=== PATIENT | male | born 1980 | race Two or more races ===

== ENCOUNTER → 2024-08-01 | Outpatient (CLI) | payer OTHER, SELFPAY ==
[2024-08-01 11:04] LABS: Collection Type, Urine Clean Catch; Squamous Epithelial Cell,Urine 0 /hpf (0-5)
[2024-08-01 11:26] LABS: Basophils % (Auto) 1 % (0-2.5); Eosinophils # (Auto) 0.1 Thou/mm3 (0.0-0.5); Eosinophils % (Auto) 2 % (0-10); Hematocrit 45.9 % (41.0-53.0); Hemoglobin 16.2 g/dL (13.5-16.0); Immature Granulocytes % (Auto) 0 % (0-0); Immature Granulocytes Auto 0.01 Thou/mm3 (0.00-0.00); Lymphocytes # (Auto) 1.7 Thou/mm3 (1.0-4.8); Lymphocytes % (Auto) 26 % (10-50); Mean Corpuscular HGB Conc 35.3 g/dl (31.0-37.0); Mean Corpuscular Hemoglobin 31.5 pg (25.0-35.0); Mean Corpuscular Volume 89 fL (80-100); Monocytes # (Auto) 0.5 Thou/mm3 (0.0-0.8); Monocytes % (Auto) 7 % (0-12); Neutrophils # (Auto) 4.2 Thou/mm3 (1.8-7.7); Neutrophils % (Auto) 65 % (37-80); Nucleated Red Blood Cell % 0 /100 WBC (0); Platelet Count 223 Thou/mm3 (140-440); RDW Standard Deviation 38.5 fL (35.1-43.9); Red Blood Count 5.15 Miln/mm3 (4.50-5.90); White Blood Count 6.5 Thou/mm3 (3.8-10.6)
[2024-08-01 11:44] LABS: Alanine Aminotransferase 34 U/L (10-49); Albumin, Serum 4.7 gm/dL (3.5-5.0); Alkaline Phosphatase 74 U/L (46-116); Anion Gap 10 (7-16); Aspartate Amino Transferase 23 U/L (0-34); BUN/Creatinine Ratio 12 Ratio (12-20); Bilirubin,Total 0.8 mg/dL (0.3-1.2); Blood Urea Nitrogen 13 mg/dL (9-23); Calcium 9.1 mg/dL (8.3-10.6); Calcium (Corrected) 9.1 mg/dL (8.5-10.1); Carbon Dioxide 28.1 mMol/L (20.0-31.0); Cardiac Risk Estimate 4.8 RATIO (4.0-6.7); Chloride 104 mMol/L (98-107); Cholesterol 224 mg/dL (132-200); Creatinine (Component) 1.1 mg/dL (0.6-1.3); Globulin 2.4 gm/dL (2.3-3.5); Glucose 93 mg/dL (74-106); HDL Cholesterol 47 mg/dL (40-60); LDL Cholesterol,Calculated 148 mg/dL (0-130); Osmolality,Calculated 283 (275-295); Potassium 3.8 mMol/L (3.4-5.1); Sodium 142 mMol/L (136-145); Total Protein 7.1 gm/dL (5.7-8.2); Triglycerides 144 mg/dL (30-150); eGFR > 60 See Note
[2024-08-01 12:32] LABS: Bilirubin,Urine Negative (Negative); Blood,Urine Negative (Negative); Clarity,Urine Clear (Clear/Hazy); Color,Urine Lt-Yellow (Lt Yel-Yel); Glucose, Urine Negative (Negative); Ketones,Urine Negative (Negative); Leukocyte Esterase,Urine Negative (Negative); Nitrite,Urine Negative (Negative); PH,Urine 6.5 (5.0-7.0); Protein,Urine Negative (Neg - Trace); RBC,Urine 2 /hpf (0-3); Urobilinogen,Urine Negative mg/dL (0.0-1.0); WBC,Urine < 1 /hpf (0-5)
== END | disposition home or self-care (01) ==
LOC: COPL 10:31
PROVIDERS: PCP Family Medicine; Referring Provider Family Medicine; Visit Provider Family Medicine
DX: Z00.00 Encounter for general adult medical examination without abnormal findings (principal)
CPT/HCPCS: 36415; 80053; 80061; 81001; 85025

== ENCOUNTER → 2024-08-04 | Outpatient (CLI) | payer OTHER, SELFPAY ==
--- NOTE | 2024-08-04 15:37 | EKG_ITS ---
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
== END | disposition home or self-care (01) ==
LOC: SEKG 15:24
PROVIDERS: PCP Family Medicine; Referring Provider Family Medicine; Visit Provider Family Medicine
DX: R00.0 Tachycardia, unspecified (principal); R03.0 Elevated blood-pressure reading, without diagnosis of hypertension; E78.2 Mixed hyperlipidemia
CPT/HCPCS: 93005

== ENCOUNTER → 2024-09-05 | Outpatient (CLI) | payer OTHER, SELFPAY ==
[2024-09-05 08:43] LABS: Vitamin B12 533 pg/mL (211-911); Vitamin D 25 Hydroxy Total 30.3 ng/mL (7.3-40.2)
[2024-09-05 08:59] LABS: Syphilis Nonreactive (Nonreactive)
[2024-09-12 06:49] LABS: Antithrombin III, Activity 118 % normal (80-135); Antithrombin III, Antigen 97 % normal (80-120); PTT-LA Screen 32 seconds (< OR = 40); Protein C Activity* 185 % normal (70-180); Protein C Antigen, Total* 126 % normal (70-140); Protein S Activity* 98 % normal (70-150); Protein S Antigen, Total* 115 % normal (70-140); dRVVT Screen 35 seconds (< OR = 45)
[2024-09-12 06:52] LABS: Factor V Leiden Mutation NEGATIVE; Homocysteine* 11.9 umol/L (< OR = 13.5)
== END | disposition home or self-care (01) ==
LOC: COPL 07:26
PROVIDERS: PCP Family Medicine; Referring Provider Psychiatry & Neurology Neurology; Visit Provider Psychiatry & Neurology Neurology
DX: I63.9 Cerebral infarction, unspecified (principal); D51.9 Vitamin B12 deficiency anemia, unspecified; E55.9 Vitamin D deficiency, unspecified; E78.5 Hyperlipidemia, unspecified
CPT/HCPCS: 36415; 81241; 82306; 82607; 83090; 85300; 85301; 85302; 85303; 85305; 85306; 85613; 85730; 86780

== ENCOUNTER 2024-09-09 12:07 | Emergency (ER) | payer OTHER, SELFPAY ==
[2024-09-09 12:10] VITALS: BP 161/98; PULSE 75; RESP 16; TEMP 36.2; O2SAT 98; BMI 29.8
--- NOTE | 2024-09-09 12:10 | PC.NURSE ---
EMPLOYEE WHO HAD SUDDEN ONSET SEEING SPOT AND BEING DIAPHORETIC WHILE AT WORK. HX RECENT CVA 1 MONTH AGO. WAS A MEDICAL RESPONSE UNIT ACTIVATION
--- NOTE | 2024-09-09 12:21 | PD.EDWEAK ---
ED Weakness RME/HPI General Chief complaint: Neuro Symptoms/Deficit Stated complaint: SEEING SPOTS, DIAPHORETIC TODAY AT WORK Time Seen by Provider: 09/09/24 12:44 Arrival date/time: 09/09/24 12:07 Limitations: no limitations RME / HPI RME / HPI Narrative: DR. KAMINI MCGRATH ED EVALUATION: 43-year-old male with past medical history of vertigo s/p recent stroke, intermittent tachycardia, and chronic right eye contractility issues presents to the Emergency Department with complaints of generalized weakness, diaphoresis, feeling hot, seeing spots, and palpitations. 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 Patient took propranolol this morning prior tachycardia, in the 120's this morning. Denies chest pain, dyspnea, fevers, chills, or recent sick contacts. Here, blood sugar 102, blood pressure was 155/98. No recent travel. He has a chronic asymmetric smile and right facial droop which is baseline following his prior stroke. Related Data Allergies Allergy/AdvReac Type Severity Reaction Status Date / Time No Known Allergies Allergy Verified 09/09/24 12:31 Review of Systems Review of Systems Systems Reviewed: All systems reviewed, normal except as documented Past Medical History Social History SMOKING STATUS: Never smoker SUBSTANCE USE: does not use ALCOHOL: Never Past Medical History Comments PMH COMMENT: vertigo s/p recent stroke, intermittent tachycardia, and chronic right eye contractility issues ED Exam General Limitations: Present no limitations General appearance: Present alert and in no apparent distress Head Head exam: Present atraumatic, normocephalic and normal inspection Eye Eye exam: Present normal appearance, PERRL and EOMI ENT ENT exam: Present normal exam, normal oropharynx and mucous membranes moist Neck Neck exam: Present normal inspection, full ROM and trachea midline Chest Chest inspection: Present normal inspection and symmetric chest wall rise Respiratory Respiratory exam: Present normal lung sounds bilaterally Cardiovascular Cardiovascular exam: Present regular rate, normal rhythm and normal heart sounds Abdominal Exam Abdominal exam: Present soft and normal bowel sounds Extremities Exam Extremities exam: Present normal inspection and full ROM Back Exam Back exam: Present normal inspection and full ROM Neurological Exam Neurological exam: Present alert, oriented X3 and other (has a chronic asymmetric smile and right facial droop which is baseline following his prior stroke) Psychiatric Psychiatric exam: Present normal affect and normal mood Skin Skin exam: Present warm, dry, intact and normal color Course Quality Measures none Orders Category Date Time Status Bedside COVID-19 Antigen Test NOW Care 09/09/24 12:42 Active Bedside Influenza A&B Antigen Test NOW Care 09/09/24 12:43 Completed EKG (ED ONLY) *Do not use* NOW Care 09/09/24 12:[address] head/brain wo con Stat Exams 09/09/24 12:46 Completed CXR [XR chest 1V] Stat Exams 09/09/24 12:44 Completed EKG (ED Only) Stat Exams 09/09/24 12:27 Draft CBC Stat Lab 09/09/24 12:25 Completed CK [Creatine Kinase] Stat Lab 09/09/24 12:25 Completed CMP [Comprehensive Metabolic Panel] Stat Lab 09/09/24 12:25 Completed Troponin I Stat Lab 09/09/24 12:25 Completed UA, C/S IF [Urinalysis, C/S if Indicated] Stat Lab 09/09/24 14:00 Completed VBG [Venous Blood Gas] Stat Lab 09/09/24 12:25 Completed Ketorolac Inj [Toradol Inj] Med 09/09/24 15:35 Discontinued 15 mg IVP X1 ONE Metoclopramide Inj [Reglan Inj] Med 09/09/24 12:51 Discontinued 5 mg IVP NOW ONE Ringers Lactated 1000 ml [Lactated Ringers] 1,000 ml Med 09/09/24 12:42 Discontinued IV 999 mls/hr Reevaluation(s) Reevaluation #1: Symptoms have resolved and patient feels better. We also discussed to get an ultrasound of the eye, patient declined at this time. Time: 15:34 Vital Signs Vital signs: Vital Signs Temperature 97.1 F 09/09/24 12:10 Pulse Rate 75 09/09/24 12:10 Respiratory Rate 16 09/09/24 12:10 Blood Pressure 161/98 H 09/09/24 12:10 Pulse Oximetry (%) 98 09/09/24 12:10 Oxygen Delivery Method Room Air 09/09/24 12:10 Weakness MDM Narrative MDM Narrative:: I, Jasmine Rahman, am scribing for and in the presence of Dr. Goodman. Patient is a 43-year-old male with medical history notable for multiple strokes, residual left-sided facial droop as well as tongue deviation presenting emergency department concerns for feeling lightheaded, diaphoresis and spots in his vision earlier today, transient and self resolved before my evaluation. Vital signs and exam as listed. Concern for ACS arrhythmia electrolyte abnormality thyroid disturbance intracranial hemorrhage among others. Did labs EKG CT brain also fluids offered medication for symptom relief. Labs with evidence of elevated hemoglobin currently 17.1. Previously was 16. VBG without evidence of acidosis, no significant acute electrolyte abnormality, patient with mild transaminitis, T. bili normal, AST 42, ALT 75 alk phos normal. Patient CK is 177. Troponin not elevated, EKG without evidence of ischemia. EKG sinus rhythm, with intraventricular conduction delay, prior EKG with right bundle branch block. CT brain unremarkable. Urinalysis without evidence of infection. Reevaluated patient, patient remains hemodynamically stable not distressed. Patient states that ever since he had a stroke he has had a persistent headache that has been unchanged. Offered patient Toradol patient would like to move forward with Toradol. States that his vision is at his baseline. I did offer patient an ocular ultrasound however he declined at this time stating that he has an appointment to see his family service counselor soon. I did discuss patient's elevated hemoglobin that has been uptrending. I recommended that he sees a vice president digital strategist to see if this is something of clinical significance for him and whether or not it is contributing to patient symptoms. Patient feels comfortable and is ready to go home. Updated his at bedside. Patient is discharged she is hemodynamically stable nondistressed. Close return precautions provided. Patient data External records reviewed:: None (no previous visits) Clinical information provided by:: patient Social determinants that could affect healthcare access:: none Patient has the following chronic illnesses:: vertigo s/p recent stroke, intermittent tachycardia, and chronic right eye contractility issues How is presenting disease/condition affected by chronic disease/condition?: exacerbated by Evaluation data The following diagnostics were reviewed and interpreted by me:: lab results, radiology exam(s) and EKG tracing(s) Lab and/or radiology exams considered but not ordered:: Discussed to get an ultrasound of the eye, patient declined at this time. Interpretation Summary: My interpretation: EKG performed at 1227 hours, sinus rhythm, rate 64, normal intervals, intraventricular conduction delay, no cardiac alert Procedure(s): CT head/brain wo con Accession Number(s): [id number] cc: Harsha Nance MD; Charlette Goodman MD~ Examination: CT brain head without contrast. 2-D sagittal coronal reconstructions Date and time of exam:September 09, 2024 1307 hours INDICATIONS: Blurred vision, diaphoresis, history recent brainstem stroke one month ago CTDI: vol (mGy):56.8 DLP: (mGycm):1279 Technique: Multiple CT axial sections of the brain have been obtained, 5 mm slice thickness. Contrast has not been administered. 2-D sagittal, coronal reconstructions have been obtained Low dose protocols were performed. One or more of the following dose reduction techniques were used; automated exposure control, adjustment of the mA and/or KV according to patient size, use of iterative reconstruction technique. Findings: No significant ventricular enlargement. Intra-axial or extra-axial hemorrhage density is not seen. No mass effect or midline shift Basal cisterns are not remarkable. Fourth ventricle is midline. Cranial vault intact. Impression: Negative for acute hemorrhage, mass effect or midline shift Dictated By: Harsha Nance MD Procedure(s): XR chest 1V Accession Number(s): [id number] cc: Harsha Nance MD; Charlette Goodman MD~ Examination: AP chest single view Technique one AP portable upright chest single view Date and time: September 09, 2024 12:51 PM INDICATIONS: Weakness altered mental status today FINDINGS: Normal heart size No aspiration pneumonia. No pulmonary edema. The osseous structures are intact IMPRESSION: No active disease Dictated By: Harsha Nance MD Medications / Prescriptions Medications or Prescriptions considered but not ordered:: none Medication administrations:: Medication Administration History Discontinued Medications Lactated Ringer's (Lactated Ringers) 1,000 mls @ 999 mls/hr IV .Q1H1M ONE Stop: 09/09/24 13:42 Last Infusion: 09/09/24 14:00 Dose: Infused Documented By: Admin: 09/09/24 12:50 Dose: 999 mls/hr Documented By: ANTWON Ketorolac Tromethamine (Ketorolac Inj 30 Mg/Ml Vial) 15 mg IVP X1 ONE Stop: 09/09/24 15:36 Metoclopramide HCl (Metoclopramide Inj 5 Mg/Ml Vial 2 Ml) 5 mg IVP NOW ONE; Protocol Stop: 09/09/24 12:52 Last Admin: 09/09/24 12:59 Dose: 5 mg Documented By: Annamarie see above if any Consultations Consultation(s) initiated? (list below): No Diagnosis Weakness Differential Diagnosis: other (SVT, medication side effect (propranolol or other meds), TIA, CVA) Most likely diagnosis given after review of the tests above:: Postural dizziness with presyncope, headache Admission Indicated Admission indicated?: not indicated Admission Request Was there a request for admission?: No Disposition Plan Disposition Plan: Discharge Discharge Attestation Discharge Attestation: The patient and all family members were given an opportunity to ask questions and understood the discharge instructions. Discharge instructions specifically effects, indications for sooner follow up or return to the emergency department, and the expected course of current diagnosis. Patient condition: Stable Discharge Plan Plan Patient Disposition: HOME (Self Care) Prescriptions/Referrals Referrals: Charlette Daniels MD [Primary Care Provider] - In 1 week Problem List Clinical Impression: Elevated CK, Elevated hemoglobin, Postural dizziness with presyncope, Headache Patient/Caregiver Discharge Instructions Education Materials: Causes of Syncope Additional Instructions: Although your workup was reassuring today I think it is important that you discuss your uptrending hemoglobin with your primary care doctor as well as request evaluation with a vice president digital strategist. Please return immediately if you have recurrence of symptoms or any other symptom of concern. Please follow-up with your neurologist as well as your family service counselor. Print Language: Swedish Stand Alone Forms: Kristi Award Info., Patient Portal Info Letter
--- NOTE | 2024-09-09 12:27 | EKG_ITS ---
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
[2024-09-09 12:31] VITALS: BP 168/98; PULSE 73; RESP 17; TEMP 36.2; O2SAT 98
--- NOTE | 2024-09-09 12:44 | XR_ITS ---
Examination: AP chest single view Technique one AP portable upright chest single view Date and time: September 09, 2024 12:51 PM INDICATIONS: Weakness altered mental status today FINDINGS: Normal heart size No aspiration pneumonia. No pulmonary edema. The osseous structures are intact IMPRESSION: No active disease
--- NOTE | 2024-09-09 12:46 | XR_ITS ---
Examination: CT brain head without contrast. 2-D sagittal coronal reconstructions Date and time of exam:September 09, 2024 1307 hours INDICATIONS: Blurred vision, diaphoresis, history recent brainstem stroke one month ago CTDI: vol (mGy):56.8 DLP: (mGycm):1279 Technique: Multiple CT axial sections of the brain have been obtained, 5 mm slice thickness. Contrast has not been administered. 2-D sagittal, coronal reconstructions have been obtained Low dose protocols were performed. One or more of the following dose reduction techniques were used; automated exposure control, adjustment of the mA and/or KV according to patient size, use of iterative reconstruction technique. Findings: No significant ventricular enlargement. Intra-axial or extra-axial hemorrhage density is not seen. No mass effect or midline shift Basal cisterns are not remarkable. Fourth ventricle is midline. Cranial vault intact. Impression: Negative for acute hemorrhage, mass effect or midline shift
[2024-09-09] MEDS: RINGERS LACTATED 1000 ML 1,000 ML 999 ML IV (12:50)
[2024-09-09 12:56] LABS: Base Excess, Venous 1 (-3-3); O2 Saturation, Venous 65 % (96-97); PCO2, Venous 53 mmHg (36-56); PO2, Venous 36 mmHg (15-58); pH, Venous 7.33 (7.33-7.66)
[2024-09-09 12:59] LABS: Basophils # (Auto) 0.1 Thou/mm3 (0.0-0.2); Basophils % (Auto) 1 % (0-2.5); Eosinophils # (Auto) 0.4 Thou/mm3 (0.0-0.5); Eosinophils % (Auto) 4 % (0-10); Hematocrit 49.4 % (41.0-53.0); Hemoglobin 17.1 g/dL (13.5-16.0); Immature Granulocytes Auto 0.05 Thou/mm3 (0.00-0.00); Lymphocytes # (Auto) 2.2 Thou/mm3 (1.0-4.8); Lymphocytes % (Auto) 23 % (10-50); Mean Corpuscular HGB Conc 34.6 g/dl (31.0-37.0); Mean Corpuscular Hemoglobin 31.8 pg (25.0-35.0); Mean Corpuscular Volume 92 fL (80-100); Monocytes # (Auto) 0.7 Thou/mm3 (0.0-0.8); Monocytes % (Auto) 8 % (0-12); Neutrophils # (Auto) 6.1 Thou/mm3 (1.8-7.7); Neutrophils % (Auto) 64 % (37-80); Nucleated Red Blood Cell # 0.00 Thou/mm3 (0.00-0.00); Nucleated Red Blood Cell % 0 /100 WBC (0); Platelet Count 240 Thou/mm3 (140-440); RDW Standard Deviation 42.1 fL (35.1-43.9); Red Blood Count 5.38 Miln/mm3 (4.50-5.90); White Blood Count 9.5 Thou/mm3 (3.8-10.6)
[2024-09-09] MEDS: METOCLOPRAMIDE INJ 5 MG/ML VIAL 2 ML IVP (12:59)
[2024-09-09 13:19] LABS: Alanine Aminotransferase 75 U/L (10-49); Albumin, Serum 5.0 gm/dL (3.5-5.0); Albumin/Globulin Ratio 1.6 (1.2-2.2); Alkaline Phosphatase 96 U/L (46-116); Anion Gap 10 (7-16); Aspartate Amino Transferase 42 U/L (0-34); BUN/Creatinine Ratio 15 Ratio (12-20); Bilirubin,Total 0.7 mg/dL (0.3-1.2); Blood Urea Nitrogen 17 mg/dL (9-23); Calcium 9.6 mg/dL (8.3-10.6); Calcium (Corrected) 9.6 mg/dL (8.5-10.1); Carbon Dioxide 27.9 mMol/L (20.0-31.0); Chloride 104 mMol/L (98-107); Creatine Kinase 177 U/L (34-171); Creatinine (Component) 1.1 mg/dL (0.6-1.3); Estimated Creatinine Clearance 103.9 mL/min (>60); Globulin 3.1 gm/dL (2.3-3.5); Glucose 96 mg/dL (74-106); Osmolality,Calculated 284 (275-295); Potassium 4.3 mMol/L (3.4-5.1); Sodium 142 mMol/L (136-145); Total Protein 8.1 gm/dL (5.7-8.2); Troponin I < 0.002 ng/mL (0.0-0.045); eGFR > 60 See Note
[2024-09-09 14:00] VITALS: BP 165/103; PULSE 58; RESP 18; O2SAT 98
[2024-09-09 14:37] LABS: Collection Type, Urine Clean Catch; Squamous Epithelial Cell,Urine 0 /hpf (0-5)
[2024-09-09 14:41] LABS: Bacteria,Urine Rare; Bilirubin,Urine Negative (Negative); Blood,Urine Negative (Negative); Clarity,Urine Clear (Clear/Hazy); Color,Urine Lt-Yellow (Lt Yel-Yel); Culture Indicated,Urine Not Indicated; Glucose, Urine Negative (Negative); Ketones,Urine Negative (Negative); Leukocyte Esterase,Urine Negative (Negative); Nitrite,Urine Negative (Negative); PH,Urine 6.0 (5.0-7.0); Protein,Urine Negative (Neg - Trace); RBC,Urine 1 /hpf (0-3); Specific Gravity,Urine 1.021 (1.001-1.035); Urobilinogen,Urine Negative mg/dL (0.0-1.0); WBC,Urine < 1 /hpf (0-5)
[2024-09-09 16:00] VITALS: BP 149/101; PULSE 62; RESP 16; O2SAT 95
[2024-09-09] MEDS: KETOROLAC INJ 30 MG/ML VIAL 15 MG IVP (16:14)
== END 2024-09-09 16:20 | disposition home or self-care (01) ==
PROVIDERS: Emergency Provider Emergency Medicine; PCP Family Medicine
DX: R51.9 Headache, unspecified (principal); R55 Syncope and collapse; R42 Dizziness and giddiness; R74.8 Abnormal levels of other serum enzymes; R41.82 Altered mental status, unspecified; R53.1 Weakness; H53.8 Other visual disturbances; R61 Generalized hyperhidrosis; I45.89 Other specified conduction disorders; Z86.73 Personal history of transient ischemic attack (TIA), and cerebral infarction without residual deficits
CPT/HCPCS: 36415; 70450; 71045; 80053; 81001; 82550; 82803; 84484; 85025; 87400; 87811; 93005; 96361; 96374; 96375; 99283; J1885; J2765; J7120

== ENCOUNTER 2024-09-13 14:07 | Emergency (ER) | payer OTHER, SELFPAY ==
[2024-09-13] VITALS (7 sets, daily range): BP systolic 125–161; BP diastolic 85–101; PULSE 72–79; RESP 16–21; TEMP 36.4–37.1; O2SAT 95–97; BMI 30.7
--- NOTE | 2024-09-13 14:15 | PC.NURSE ---
pt came in due to MRU called from tele floor. pt is employee and started about 1300 having headache and gen body weakness. bs 140mg/dl and noticed bp elevated at 164/93 on floor. pt also stated that he is seeing spots in his rt eye. pt has hx of stroke x3 in past last one was in july which was dx in his brain stem at [facility]. pt is on plavix blood thinners. pt also has hx of hemorrhage to rt eye and had that repaired but that was about 10 years ago per pt. pt placed on monitor and pulse ox and PA at bedside for evaluation. stroke exam neg per NIHSS befast neg
--- NOTE | 2024-09-13 14:16 | PC.NURSE ---
MRU, patient transferred from Tele floor to ED, per patient about 1hr ago felt onset of headache with right eye blurred vision, went to take a lunch an it continued, hx of previous stroke with elevated BP and blood sugar of 140, patient is alert/oriented, agreed to be evaluated by ED physician, placed in room 03, pending MD collazo.
--- NOTE | 2024-09-13 14:20 | EKG_ITS ---
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
--- NOTE | 2024-09-13 14:20 | XR_ITS ---
Examination: CT brain head without contrast. CT brain with intravenous contrast 2-D sagittal coronal reconstructions Date and time of exam:September 13, 2024, 1617 hours INDICATIONS: Headaches weakness today CTDI: vol (mGy):11.3 DLP: (mGycm):2518 Technique: Multiple CT axial sections of the brain have been obtained, 5 mm slice thickness, pre and post 50 cc Isovue 370 2-D sagittal, coronal reconstructions have been obtained Low dose protocols were performed. One or more of the following dose reduction techniques were used; automated exposure control, adjustment of the mA and/or KV according to patient size, use of iterative reconstruction technique. Findings: No significant ventricular enlargement. Intra-axial or extra-axial hemorrhage density is not seen. No mass effect or midline shift Basal cisterns are not remarkable. Fourth ventricle is midline. Cranial vault intact. No abnormal enhancing cerebellar or cerebral lesions Impression: Negative for acute hemorrhage, mass effect or midline shift Consider brain MRI MRA without contrast, stroke protocol, follow-up
--- NOTE | 2024-09-13 14:23 | EDNOTE_ITS ---
Neuro Symptoms Deficit-RME/HPI General Chief Complaint: Neuro Symptoms/Deficit Stated Complaint: RIGHT EYE BLURRED VISION, HX OF STROKE, LOCKWOOD Time Seen by Provider: 09/13/24 14:14 Source: patient Arrival date/time: 09/13/24 14:07 Patient is a 43-year-old male who is here today with a 1 hour history of headache and generalized weakness. He states he had near syncope. He had no falls or injuries. Denies any chest pain or palpitations. Has no shortness of breath. Has no abdominal pain, nausea, vomiting. He states his headache is diffuse and actually improving at this time. He denies any unilateral weakness or facial droop. No aphasia. Patient states he is currently taking Plavix and had a stroke 1 month ago. This was treated and diagnosed at [facility] in [place], [place]. He is followed by neurology. He has no other acute complaints at this time. Related Data Allergies Allergy/AdvReac Type Severity Reaction Status Date / Time No Known Allergies Allergy Verified 09/13/24 14:12 Course Course Course Narrative: Obtained and reviewed chart notes from [facility] at approximately 1615 p.m. Patient was admitted there on March 11 and discharged on the . His initial CT of the head scans were unremarkable. Patient later had a MRI which revealed small acute lacunar infarct at the left anterior cerebral hemisphere with additional chronic bilateral inferior cerebellar lacunar infarcts. 17:[address] of the head with and without contrast, there is no acute intracranial pathology noted on CT. Dr. Bai with neurology was contacted. She will continue the discussion in 10 minutes. Quality Measures none Orders Category Date Time Status Bedside Blood Glucose NOW Care 09/13/24 14:[address] Screening NOW Care 09/13/24 14:[address] Screening X1 Care 09/13/24 14:20 Active Ledger Clerk NOW Care 09/13/24 14:20 Active Continuous Pulse Oximetry NOW Care 09/13/24 14:20 Completed EKG (ED ONLY) *Do not use* NOW Care 09/13/24 14:20 Completed Insert IV NOW Care 09/13/24 14:20 Active NIH Stroke Scale now Care 09/13/24 14:20 Completed NPO NOW Care 09/13/24 14:20 Active Nurse Swallow Screen x1 Care 09/13/24 14:[address] head/brain wo/w con Stat Exams 09/13/24 14:20 Completed EKG (ED Only) Stat Exams 09/13/24 14:20 Draft CBC Stat Lab 09/13/24 14:28 Completed Comprehensive Metabolic Panel Stat Lab 09/13/24 14:28 Completed Drug Screen,Urine Stat Lab 09/13/24 15:34 Completed Magnesium Stat Lab 09/13/24 14:28 Completed Partial Thromboplastin Time Stat Lab 09/13/24 14:28 Completed Prothrombin Time with INR Stat Lab 09/13/24 14:28 Completed Troponin I Stat Lab 09/13/24 14:28 Completed Urinalysis Stat Lab 09/13/24 15:34 Completed Urine Culture Stat Lab 09/13/24 15:34 Received Vital Signs Vital signs: Vital Signs Temperature 98.8 F 09/13/24 14:13 Pulse Rate 79 09/13/24 14:13 Respiratory Rate 21 H 09/13/24 14:13 Blood Pressure 161/101 H 09/13/24 14:13 Pulse Oximetry (%) 97 09/13/24 14:13 Oxygen Delivery Method Room Air 09/13/24 14:13 Neuro Symptoms / Deficit MDM Narrative MDM Narrative:: 09/13/24 14:07 Patient is a 43-year-old male who is here today with a 1 hour history of headache and generalized weakness. He states he had near syncope. He had no falls or injuries. Denies any chest pain or palpitations. Has no shortness of breath. Has no abdominal pain, nausea, vomiting. He states his headache is diffuse and actually improving at this time. He denies any unilateral weakness or facial droop. No aphasia. Patient states he is currently taking Plavix and had a stroke 1 month ago. This was treated and diagnosed at [facility] in [place], [place]. He is followed by neurology. He has no other acute complaints at this time. On exam, patient is nontoxic-appearing and in no visible signs distress. Cranial nerves II to XII are grossly intact. Vital signs are stable. Workup was initiated and records from [facility] were requested. Records from [facility] in [place], [place] were obtained and reviewed. Patient had a 24-hour admission there and MRI was obtained. Patient also had cardiac echo. MRI of the brain and spine was obtained on 08/09/2024. Results are read as small acute lacunar infarcts in the left anterior cerebellar hemisphere. Additional chronic bilateral inferior cerebellar lacunar infarcts. MRI of the neck revealed mild degeneration changes. Patient's CT with and without of the head are unremarkable today. CBC is unremarkable. AST is mildly elevated at 43, ALT at 67, metabolic panel is otherwise unremarkable. Urinalysis unremarkable. PT/INR are unremarkable. Case discussed with the patient's neurologist. No further workup was requested. No further interventions at this time. Patient to follow-up with neurology as an outpatient. This discussed in detail the patient. We discussed return precautions. He agrees to return as needed for worsening or emergent changes. Patient data External records reviewed:: [facility] previous records and Other (specify) (Admission records from [facility] ) Clinical information provided by:: patient Social determinants that could affect healthcare access:: none Patient has the following chronic illnesses:: Headaches and near syncope How is presenting disease/condition affected by chronic disease/condition?: exacerbated by Evaluation data The following diagnostics were reviewed and interpreted by me:: lab results (No acute abnormalities), radiology exam(s) ( no acute abnormalities) and EKG tracing(s) (Normal sinus rhythm at [address] changes or dynamic T waves.) Lab and/or radiology exams considered but not ordered:: n/a Interpretation Summary: Unremarkable workup Medications / Prescriptions Medications or Prescriptions considered but not ordered:: n/a Medication administrations:: n/a Consultations Consultation(s) initiated? (list below): Yes Diagnosis Neuro Differential Diagnosis: subarachnoid hemorrhage, cerebrovascular accident and transient cerebral ischemia Most likely diagnosis given after review of the tests above:: Acute headache, near syncope Admission Indicated Admission indicated?: not indicated Admission Request Was there a request for admission?: No Disposition Plan Disposition Plan: Discharge Discharge Attestation Discharge Attestation: The patient and all family members were given an opportunity to ask questions and understood the discharge instructions. Discharge instructions specifically effects, indications for sooner follow up or return to the emergency department, and the expected course of current diagnosis. Patient condition: Stable Discharge Plan Plan Patient Disposition: HOME (Self Care) Patient condition on transfer: Stable Prescriptions/Referrals Referrals: Clint Daniels MD [Primary Care Provider] - In 1 week Problem List Clinical Impression: Acute headache, Near syncope Patient/Caregiver Discharge Instructions Education Materials: Causes of Syncope, Self-Care for Headaches Additional Instructions: - Your neurologist was contacted. She wants you to take Plavix as prescribed. Aspirin 81 mg once daily. Contact her office to schedule close follow-up appointment - Follow-up with your primary doctor within the next 1 to 2 weeks additionally. - Return to the emergency room at anytime for any worsening or emergent changes as needed Print Language: Belarusian Stand Alone Forms: Kristi Award Info., Patient Portal Info Letter
[2024-09-13 14:39] LABS: Basophils # (Auto) 0.0 Thou/mm3 (0.0-0.2); Basophils % (Auto) 0 % (0-2.5); Eosinophils # (Auto) 0.3 Thou/mm3 (0.0-0.5); Eosinophils % (Auto) 4 % (0-10); Hematocrit 45.1 % (41.0-53.0); Hemoglobin 15.8 g/dL (13.5-16.0); Immature Granulocytes Auto 0.03 Thou/mm3 (0.00-0.00); Lymphocytes # (Auto) 1.7 Thou/mm3 (1.0-4.8); Lymphocytes % (Auto) 23 % (10-50); Mean Corpuscular HGB Conc 35.0 g/dl (31.0-37.0); Mean Corpuscular Hemoglobin 32.0 pg (25.0-35.0); Mean Corpuscular Volume 92 fL (80-100); Monocytes # (Auto) 0.7 Thou/mm3 (0.0-0.8); Monocytes % (Auto) 9 % (0-12); Neutrophils # (Auto) 4.6 Thou/mm3 (1.8-7.7); Neutrophils % (Auto) 63 % (37-80); Nucleated Red Blood Cell # 0.00 Thou/mm3 (0.00-0.00); Nucleated Red Blood Cell % 0 /100 WBC (0); Platelet Count 193 Thou/mm3 (140-440); RDW Standard Deviation 40.6 fL (35.1-43.9); Red Blood Count 4.93 Miln/mm3 (4.50-5.90); White Blood Count 7.3 Thou/mm3 (3.8-10.6)
[2024-09-13 14:54] LABS: INR 1.0 (0.9-1.3); Partial Thromboplastin Time 28.9 Seconds (22.0-36.0); Prothrombin Time 10.5 Seconds (9.0-12.2)
[2024-09-13 14:58] LABS: Alanine Aminotransferase 67 U/L (10-49); Albumin, Serum 4.6 gm/dL (3.5-5.0); Albumin/Globulin Ratio 1.8 (1.2-2.2); Alkaline Phosphatase 100 U/L (46-116); Anion Gap 12 (7-16); Aspartate Amino Transferase 43 U/L (0-34); BUN/Creatinine Ratio 13 Ratio (12-20); Bilirubin,Total 0.9 mg/dL (0.3-1.2); Blood Urea Nitrogen 16 mg/dL (9-23); Calcium 9.0 mg/dL (8.3-10.6); Calcium (Corrected) 9.0 mg/dL (8.5-10.1); Carbon Dioxide 25.1 mMol/L (20.0-31.0); Chloride 104 mMol/L (98-107); Creatinine (Component) 1.2 mg/dL (0.6-1.3); Estimated Creatinine Clearance 96.6 mL/min (>60); Globulin 2.6 gm/dL (2.3-3.5); Glucose 112 mg/dL (74-106); Magnesium 1.9 mg/dL (1.6-2.6); Osmolality,Calculated 283 (275-295); Potassium 3.5 mMol/L (3.4-5.1); Sodium 141 mMol/L (136-145); Total Protein 7.2 gm/dL (5.7-8.2); Troponin I < 0.002 ng/mL (0.0-0.045); eGFR > 60 See Note
[2024-09-13 15:58] LABS: Collection Type, Urine Voided; Squamous Epithelial Cell,Urine 0 /hpf (0-5)
[2024-09-13 16:17] LABS: Bilirubin,Urine Negative (Negative); Blood,Urine Negative (Negative); Clarity,Urine Clear (Clear/Hazy); Color,Urine Yellow (Lt Yel-Yel); Glucose, Urine Negative (Negative); Ketones,Urine Negative (Negative); Leukocyte Esterase,Urine Negative (Negative); Nitrite,Urine Negative (Negative); PH,Urine 6.0 (5.0-7.0); Protein,Urine Negative (Neg - Trace); RBC,Urine 2 /hpf (0-3); Specific Gravity,Urine 1.028 (1.001-1.035); Urobilinogen,Urine Negative mg/dL (0.0-1.0); WBC,Urine 1 /hpf (0-5)
[2024-09-13 16:23] LABS: Amphetamine/Methamp Scrn,U Negative (Negative); Barbiturate Screen,Urine Negative (Negative); Benzodiazepines Screen,Urine Negative (Negative); Benzoylecgonine Screen, Ur Negative (Negative); Fentanyl Screen,Urine Negative (Negative); Opiate Screen,Urine Negative (Negative); THC Screen,Urine Negative (Negative)
== END 2024-09-13 18:11 | disposition home or self-care (01) ==
PROVIDERS: Emergency Provider Physician Assistant Medical; PCP Family Medicine
DX: R55 Syncope and collapse (principal); R51.9 Headache, unspecified; I45.10 Unspecified right bundle-branch block; Z79.02 Long term (current) use of antithrombotics/antiplatelets; Z86.73 Personal history of transient ischemic attack (TIA), and cerebral infarction without residual deficits
CPT/HCPCS: 36415; 70470; 80053; 80307; 81001; 83735; 84484; 85025; 85610; 85730; 87086; 93005; 99283; A4649; Q9967

== ENCOUNTER 2024-11-04 06:56 | Day surgery (SDC) | payer OTHER, SELFPAY ==
[2024-11-03 10:20] VITALS: BMI 30.7
[2024-11-04] VITALS (10 sets, daily range): BP systolic 100–121; BP diastolic 56–79; PULSE 60–78; RESP 10–20; TEMP 36.5; O2SAT 92–98
[2024-11-04 07:42] LABS: Basophils # (Auto) 0.0 Thou/mm3 (0.0-0.2); Basophils % (Auto) 0 % (0-2.5); Eosinophils # (Auto) 0.2 Thou/mm3 (0.0-0.5); Eosinophils % (Auto) 3 % (0-10); Hematocrit 44.9 % (41.0-53.0); Hemoglobin 15.5 g/dL (13.5-16.0); Immature Granulocytes Auto 0.02 Thou/mm3 (0.00-0.00); Lymphocytes # (Auto) 1.9 Thou/mm3 (1.0-4.8); Lymphocytes % (Auto) 27 % (10-50); Mean Corpuscular HGB Conc 34.5 g/dl (31.0-37.0); Mean Corpuscular Hemoglobin 32.2 pg (25.0-35.0); Mean Corpuscular Volume 93 fL (80-100); Monocytes # (Auto) 0.7 Thou/mm3 (0.0-0.8); Monocytes % (Auto) 10 % (0-12); Neutrophils # (Auto) 4.2 Thou/mm3 (1.8-7.7); Neutrophils % (Auto) 59 % (37-80); Nucleated Red Blood Cell # 0.00 Thou/mm3 (0.00-0.00); Nucleated Red Blood Cell % 0 /100 WBC (0); Platelet Count 206 Thou/mm3 (140-440); RDW Standard Deviation 42.1 fL (35.1-43.9); Red Blood Count 4.81 Miln/mm3 (4.50-5.90); White Blood Count 7.1 Thou/mm3 (3.8-10.6)
[2024-11-04 07:52] LABS: Anion Gap 8 (7-16); BUN/Creatinine Ratio 13 Ratio (12-20); Blood Urea Nitrogen 14 mg/dL (9-23); Calcium 9.4 mg/dL (8.3-10.6); Carbon Dioxide 29.4 mMol/L (20.0-31.0); Chloride 107 mMol/L (98-107); Creatinine (Component) 1.1 mg/dL (0.6-1.3); Estimated Creatinine Clearance 105.0 mL/min (>60); Glucose 108 mg/dL (74-106); Osmolality,Calculated 288 (275-295); Potassium 4.6 mMol/L (3.4-5.1); Sodium 144 mMol/L (136-145); eGFR > 60 See Note
[2024-11-04 08:22] LABS: INR 0.9 (0.9-1.3); Partial Thromboplastin Time 25.9 Seconds (22.0-36.0); Prothrombin Time 10.4 Seconds (9.0-12.2)
--- NOTE | 2024-11-04 08:30 | ECHO_ITS ---
Transesophageal Echo Report Ht (in): 60 Wt (lb): 223 Exam Location: Echo Lab Status: Outpatient Ent Nurse: Rimma Foss Indications: Procedure Performed: BP: 112 / 75 HR: 120 Medications 100 fentanyl 4 mg versed FINDINGS Left Ventricle Normal left ventricular size and wall thickness.The ejection fraction is visually estimated at 60 %. Right Ventricle The right ventricle is normal in size and systolic function. Left Atrium The left atrium is normal by two-dimensional, color flow and Doppler imaging with no structural abnormalities, no thrombus formation present. Right Atrium The right atrium is normal by two-dimensional imaging, color flow and Doppler imaging with no structural abnormalities, no thrombus formation present. Atrial Appendages The left atrial appendage appears normal with no evidence for thrombus. Atrial Septum Agitated saline was administered, no right - left shunt Aorta The aorta is normal by two-dimensional, color flow and Doppler interrogation. Mitral Valve The mitral valve is normal by two-dimensional, color flow and Doppler interrogation. Trace mitral regurgitation. Aortic Valve The aortic valve is trileaflet and normal by two-dimensional, color flow and Doppler interrogation. There is no significant aortic valve regurgitation. Tricuspid Valve The tricuspid valve is normal by two-dimensional, color flow and Doppler interrogation.there is trace tricuspid valve regurgitation. Pulmonic Valve The pulmonic valve is normal by two-dimensional, color flow and Doppler interrogation. There is no significant pulmonic valve regurgitation. CONCLUSIONS Indication: STROKE - rule out PFO Bubble study negative for any PFO or ASD. No LA or MILIND thrombus. Normal left ventricular size and wall thickness.The ejection fraction is visually estimated at 60-65 %. Normal RV size and function Trace MR and TR. No pericardial effusion Zev Stafford (Electronically Signed) Final Date: 04 November 2024 20:12
[2024-11-04] MEDS: SODIUM CHLORIDE 0.9% 500 ML 500 ML 30 ML IV (09:28)
[2024-11-04] MEDS: MIDAZOLAM INJ 1 MG/ML VIAL 2 ML 6 MG IVP (09:29)
[2024-11-04] MEDS: BENZOCAINE 20% (Hurricaine) SPRAY 1 DOSE TOP (09:29)
[2024-11-04] MEDS: fentaNYL CIT INJ 50 mCg/ML AMP 2ML 100 MCG IVP (09:29)
== END 2024-11-04 10:20 | disposition home or self-care (01) ==
PROVIDERS: PCP Family Medicine; Referring Provider Internal Medicine Cardiovascular Disease; Visit Provider Internal Medicine Cardiovascular Disease
PROC: (CPT 93312; principal; 2024-11-04 08:30)
DX: I63.9 Cerebral infarction, unspecified (principal); G43.909 Migraine, unspecified, not intractable, without status migrainosus; R00.2 Palpitations; E78.5 Hyperlipidemia, unspecified; I49.5 Sick sinus syndrome; F12.10 Cannabis abuse, uncomplicated; I45.10 Unspecified right bundle-branch block; Z79.02 Long term (current) use of antithrombotics/antiplatelets; Z79.899 Other long term (current) drug therapy; Z79.82 Long term (current) use of aspirin; I08.1 Rheumatic disorders of both mitral and tricuspid valves
CPT/HCPCS: 36415; 80048; 85025; 85610; 85730; 93312; 99152; J2250; J3010; J7999; A9270

== ENCOUNTER 2025-02-11 09:05 | Inpatient (IN) | payer SELFPAY ==
--- NOTE | 2025-02-11 | XR_ITS ---
Examinations: MRI Brain without intravenous contrast. MRA brain without intravenous contrast. MRA carotids without intravenous contrast 3-D vascular reconstructions Date and time of exam: February 11, 2025, 1304 hours INDICATIONS: Stroke alert today, acute onset confusion focal neurologic deficits Technique: Multiple axial and sagittal images of the brain have been obtained MRA brain carotid images without contrast obtained, including 3-D postprocessing, vascular maximum intensity projection images Findings: Sellaturcica is not enlarged. The optic chiasm and infundibular stalk are not remarkable. Prepontine and interpeduncular cisterns are not enlarged. No localized enlargement of the medulla or kaushik. Fourth ventricle and cerebellar tonsils normal in position. Subacute hemorrhage is not seen. Fourth ventricle is midline. Mass in the cerebellopontine angle region is not evident. 7th and 8th nerve complexes exhibits symmetry. Globes are symmetrical with no retro-orbital mass. Increased white matter signal evident, punctate focus increased signal left frontal parietal white matter FLAIR image 17 and right frontal white matter FLAIR image 15 Diffusion-weighted images demonstrate no focus of restricted diffusion Mass-effect upon the ventricular system is not identified. MRA carotid images no carotid significant stenoses. MRA brain images no large vessel occlusions Impression: Negative for acute hemorrhage, mass effect or midline shift Old infarcts as above No acute infarct. Scattered punctate foci increased signal in the white matter, demyelinating disease
[2025-02-11 09:05] VITALS: BMI 30.7
[2025-02-11 09:10] VITALS: BP 163/106; PULSE 76; RESP 17; TEMP 36.8; O2SAT 99
--- NOTE | 2025-02-11 09:12 | EKG_ITS ---
[facility] Test Date: 2025-02-11 Pat Name: LAURA BROWN Department: Room: - Gender: Male Wound Care Nurse: : 1980 Requested By: Davey Rios Order Number: [id number] Reading MD: Davey Rios Measurements Intervals [place] Rate: 65 P: 7 LA: 155 QRS: 22 QRSD: 141 T: 3 QT: 425 QTc: 442 Interpretive Statements SINUS RHYTHM RIGHT BUNDLE BRANCH BLOCK [120+ ms QRS DURATION, UPRIGHT V1, 40+ ms S IN I/aVL/V4/V5/V6] Compared to ECG 09/13/2024 14:39:49 No significant changes /store/S0/[id number].pdf
--- NOTE | 2025-02-11 09:12 | XR_ITS ---
EXAMINATION: AP chest single view TECHNIQUE: AP portable upright chest single view Date and time: February 11, 2025, 0938 hours, comparison September 09, 2024 INDICATIONS: Stroke alert today FINDINGS: No significant cardiac enlargement No aspiration pneumonia or pulmonary edema Adequate bone density IMPRESSION: Negative for aspiration pneumonia
--- NOTE | 2025-02-11 09:12 | XR_ITS ---
Examination: CT brain head without contrast. 2-D sagittal coronal reconstructions Date and time of exam: February 11, 2025, 0922 hours INDICATIONS: Stroke alert, onset focal neurologic deficit including acute confusion beginning 10 minutes ago, history CVA COMPARISON: September 13, 2024 CTDI: vol (mGy): 57.3 DLP: (mGycm): 1201 Technique: Multiple CT axial sections of the brain have been obtained, 5 mm slice thickness. Contrast has not been administered. 2-D sagittal, coronal reconstructions have been obtained Low dose protocols were performed. One or more of the following dose reduction techniques were used; automated exposure control, adjustment of the mA and/or KV according to patient size, use of iterative reconstruction technique. Findings: No significant ventricular enlargement. Small old infarcts left cerebellar hemisphere Intra-axial or extra-axial hemorrhage density is not seen. No mass effect or midline shift Basal cisterns are not remarkable. Fourth ventricle is midline. Cranial vault intact. Impression: Negative for acute hemorrhage, mass effect or midline shift Advise clinical correlation and follow-up accordingly
--- NOTE | 2025-02-11 09:12 | XR_ITS ---
Examination: CTA carotids with intravenous contrast CTA brain, head with intravenous contrast. 2-D sagittal, coronal reconstructions. 3-D reconstructions. Exam date and time: February 11, 2025, 0926 hours INDICATIONS: Stroke alert, onset focal neurologic deficit beginning 10 minutes ago CTDI: vol (mGy) 57.1 DLP: (mGycm) 529 Technique: Multiple CTA axial brain, head carotid images post intravenous contrast injection 100 cc, Isovue-370. 2-D sagittal, coronal reconstructions. 3-D reconstructions, 3-D post processing including vascular maximum intensity projection images. Low dose protocols were performed. One or more of the following dose reduction techniques were used; automated exposure control, adjustment of the mA and/or KV according to patient size, use of iterative reconstruction technique. Findings: No significant common carotid carotid bifurcation or internal carotid artery stenoses Codominant vertebral arteries with no critical stenoses Intracranial vertebral arteries basilar artery and posterior cerebral branches fill with no large vessel occlusions Petrous juxtasellar and supraclinoid portions internal carotid arteries intact M1 segments middle cerebral arteries middle cerebral artery trifurcation vessels anterior cerebral arteries fill with no large vessel occlusions IMPRESSION: No significant neck arterial stenoses No cerebral large vessel arterial occlusions or thrombus
--- NOTE | 2025-02-11 09:14 | PD.EDNEURO ---
Neuro Symptoms Deficit-RME/HPI General Chief Complaint: Neuro Symptoms/Deficit Stated Complaint: ACUTE CONFUSION X10 MINS AGO, HX STROKE Time Seen by Provider: 02/11/25 09:12 Arrival date/time: 02/11/25 09:05 Limitations: no limitations RME / HPI RME / HPI Narrative: DR. MICHELE MCGRATH ED EVALUATION: 44-year-old male presents to the emergency department with concerns that he is having a stroke. Apparently sometime ago the patient had symptoms such as confusion , lightheadedness, dizziness, and impending feeling of doom , with butterflies in his stomach and dry mouth and sweaty palms. He states he went to [facility] and they did a stroke workup. They told him that he had a lacunar stroke. Patient has not had symptoms again until today. He states he again had sudden onset of impending feeling of doom, lightheadedness which is worse when he stood up, butterflies in the stomach and hairs on the back of his neck standing up. Patient presents with blood pressure 163/106. No difficulties walking, speaking, swallowing. No numbness or tingling in any limbs or face. No chest pain or dyspnea. No fevers, shakes, chills, sweats. Patient takes aspirin and Plavix as well as a statin and propranolol for? Related Data Home Medications ?Medication ?Instructions ?Recorded ?Confirmed aspirin 81 mg tablet,delayed 81 mg PO DAILY 11/04/24 11/04/24 release atorvastatin 40 mg tablet (Lipitor) 40 mg PO DAILY High cholesterol 11/04/24 11/04/24 clopidogrel 75 mg tablet 75 mg PO DAILY Post-stroke 11/04/24 11/04/24 propranolol 40 mg tablet 40 mg PO BID heart rate- 11/04/24 11/04/24 tachycardia Allergies Allergy/AdvReac Type Severity Reaction Status Date / Time No Known Allergies Allergy Verified 09/13/24 14:12 Review of Systems Review of Systems Systems Reviewed: All systems reviewed, normal except as documented Past Medical History Past Medical History NEUROLOGIC: Positive Neurological Disorders (VERTIGO) and Cerebrovascular Accident (07/2024) CARDIAC: Positive Hypercholesterolemia MUSCULOSKELETAL: Positive Fractures (orif right ankle 2011 pin left hand pink finger 1997) Surgical History SURGICAL: Positive Eye Surgery Social History SMOKING STATUS: Never smoker SUBSTANCE USE: does not use ED Exam General Limitations: Present no limitations General appearance: Present alert, in no apparent distress and anxious (appears anxious) Head Head exam: Present atraumatic, normocephalic and normal inspection Eye Eye exam: Present normal appearance, PERRL and EOMI ENT ENT exam: Present normal exam, normal oropharynx and mucous membranes moist Neck Neck exam: Present normal inspection, full ROM and trachea midline Chest Chest inspection: Present normal inspection and symmetric chest wall rise Respiratory Respiratory exam: Present normal lung sounds bilaterally Cardiovascular Cardiovascular exam: Present regular rate, normal rhythm and normal heart sounds Abdominal Exam Abdominal exam: Present soft and normal bowel sounds Extremities Exam Extremities exam: Present normal inspection and full ROM Back Exam Back exam: Present normal inspection and full ROM Neurological Exam Neurological exam: Present alert, oriented X3, CN II-XII intact and other (motor strength 5/5 in all extremities; no sensory deficits; no nystagmus, intention tremor, dysmetria, dysdiadochokinesia, or staccato speech) Psychiatric Psychiatric exam: Present normal affect and normal mood Skin Skin exam: Present warm, dry, intact and normal color Course Quality Measures none Orders Category Date Time Status Admit to Inpatient Status Routine Admission 02/11/25 11:22 Active Bedside Blood Glucose NOW Care 02/11/25 09:12 Active [employer] Ax Consultant NOW Care 02/11/25 09:12 Active Continuous Pulse Oximetry NOW Care 02/11/25 09:12 Completed EKG (ED ONLY) *Do not use* NOW Care 02/11/25 09:12 Completed In and Out Catheter NEEDED Care 02/11/25 09:12 Active Insert IV NOW Care 02/11/25 09:12 Active MRI Screening NOW Care 02/11/25 11:21 Active Miscellaneous Nursing Order NOW Care 02/11/25 10:46 Active NIH Stroke Scale now Care 02/11/25 09:12 Active NPO NOW Care 02/11/25 09:12 Active Neuro Check Q4H Care 02/11/25 11:21 Active Nurse Swallow Screen x1 Care 02/11/25 09:12 Active Consult to Neurology / Tele-Neurology Routine Cons 02/11/25 09:[address] angio stroke protocol Stat Exams 02/11/25 09:[address] stroke protocol Stat Exams 02/11/25 09:12 Completed EKG (ED Only) Stat Exams 02/11/25 09:12 Draft MR stroke protocol brain wo con with MRA head and neck Exams 02/11/25 Completed Stat XR chest 1V portable Stat Exams 02/11/25 09:12 Completed Alcohol, Blood Medical Stat Lab 02/11/25 09:17 Completed B-Type Natriuretic Peptide Stat Lab 02/11/25 09:17 Completed CBC Stat Lab 02/11/25 09:17 Completed Comprehensive Metabolic Panel Stat Lab 02/11/25 09:17 Completed Drug Screen,Urine Stat Lab 02/11/25 10:51 Completed Free T4 (Free Thyroxine) Stat Lab 02/11/25 09:17 Completed Magnesium Stat Lab 02/11/25 09:17 Completed Partial Thromboplastin Time Stat Lab 02/11/25 09:17 Completed Prothrombin Time with INR Stat Lab 02/11/25 09:17 Completed TSH [Thyroid Stimulating Hormone] Stat Lab 02/11/25 09:17 Completed Troponin I Stat Lab 02/11/25 09:17 Completed Urinalysis, C/S if Indicated Stat Lab 02/11/25 10:51 Completed LORazepam [Ativan] Med 02/11/25 09:12 Discontinued 0.5 mg PO X1 ONE Code Status Routine Oth 02/11/25 11:21 Ordered Oxygen Delivery NOW RT 02/11/25 09:12 Active Vital Signs Vital signs: Vital Signs Temperature 98.2 F 02/11/25 09:10 Pulse Rate 76 02/11/25 09:10 Respiratory Rate 17 02/11/25 09:10 Blood Pressure 163/106 H 02/11/25 09:10 Pulse Oximetry (%) 99 02/11/25 09:10 Oxygen Delivery Method Room Air 02/11/25 09:10 Neuro Symptoms / Deficit MDM Narrative MDM Narrative:: IJasmine am scribing for and in the presence of Dr. Trevizo. 44-year-old male with episodic lightheadedness and autonomic-type symptoms with prior history of reported lacunar stroke. Current exam is nonfocal and reassuring. Symptoms not consistent with acute stroke. Workup initiated to rule out neurologic versus anxiety related etiology. Differential diagnoses include anxiety or panic episode, orthostatic symptoms, and less likely acute CVA. Plan: I called a stroke alert and will proceed with the stroke workup including Noncon CT head, CTA head and neck as well as the teleneuro consultation. I have also ordered a 0.5 mg Ativan. 9:33 AM I spoke with the telemetry radiologist. Patient is not a thrombolytic candidate due to low NIH stroke scale. It was suggested that the patient only take his home clopidogrel, and that the patient be admitted for stroke workup Patient CTs showed no abnormalities. Will admit the patient for further stroke workup. That was way back when yeah that was in July and so the yeah you yeah yeah so anyway that is why it is it is kind of a weird story but it is exactly the same as when he was diagnosed with stroke so they wanted him admitted I think you awesome thank you so much RI the reason Called and spoke with Dr. Rios (resident on team B for Dr. Lora). We discussed the patient's case in detail. She kindly accepted the patient for admission. Patient is feeling slightly better. Patient data External records reviewed:: [facility] previous records Clinical information provided by:: patient Social determinants that could affect healthcare access:: none Patient has the following chronic illnesses:: See HPI How is presenting disease/condition affected by chronic disease/condition?: exacerbated by Evaluation data The following diagnostics were reviewed and interpreted by me:: EKG tracing(s) (My interpretation: EKG performed at 0937 hours, normal sinus rhythm, rate 65, normal intervals, normal axis, no ectopy, right bundle branch block, no signs of acute ischemia) Lab and/or radiology exams considered but not ordered:: none Interpretation Summary: See MDM narrative above. RADIOLOGY Procedure(s): CT angio stroke protocol Accession Number(s): [id number] cc: Harsha Nance MD; Davey Trevizo MD~ Examination: CTA carotids with intravenous contrast CTA brain, head with intravenous contrast. 2-D sagittal, coronal reconstructions. 3-D reconstructions. Exam date and time: February 11, 2025, 0926 hours INDICATIONS: Stroke alert, onset focal neurologic deficit beginning 10 minutes ago CTDI: vol (mGy) 57.1 DLP: (mGycm) 529 Technique: Multiple CTA axial brain, head carotid images post intravenous contrast injection 100 cc, Isovue-370. 2-D sagittal, coronal reconstructions. 3-D reconstructions, 3-D post processing including vascular maximum intensity projection images. Low dose protocols were performed. One or more of the following dose reduction techniques were used; automated exposure control, adjustment of the mA and/or KV according to patient size, use of iterative reconstruction technique. Findings: No significant common carotid carotid bifurcation or internal carotid artery stenoses Codominant vertebral arteries with no critical stenoses Intracranial vertebral arteries basilar artery and posterior cerebral branches fill with no large vessel occlusions Petrous juxtasellar and supraclinoid portions internal carotid arteries intact M1 segments middle cerebral arteries middle cerebral artery trifurcation vessels anterior cerebral arteries fill with no large vessel occlusions IMPRESSION: No significant neck arterial stenoses No cerebral large vessel arterial occlusions or thrombus Dictated By: Harsha Nance MD Procedure(s): CT stroke protocol Accession Number(s): [id number] cc: Harsha Nance MD; Davey Trevizo MD~ Examination: CT brain head without contrast. 2-D sagittal coronal reconstructions Date and time of exam: February 11, 2025, 0922 hours INDICATIONS: Stroke alert, onset focal neurologic deficit including acute confusion beginning 10 minutes ago, history CVA COMPARISON: September 13, 2024 CTDI: vol (mGy): 57.3 DLP: (mGycm): 1201 Technique: Multiple CT axial sections of the brain have been obtained, 5 mm slice thickness. Contrast has not been administered. 2-D sagittal, coronal reconstructions have been obtained Low dose protocols were performed. One or more of the following dose reduction techniques were used; automated exposure control, adjustment of the mA and/or KV according to patient size, use of iterative reconstruction technique. Findings: No significant ventricular enlargement. Small old infarcts left cerebellar hemisphere Intra-axial or extra-axial hemorrhage density is not seen. No mass effect or midline shift Basal cisterns are not remarkable. Fourth ventricle is midline. Cranial vault intact. Impression: Negative for acute hemorrhage, mass effect or midline shift Advise clinical correlation and follow-up accordingly Dictated By: Harsha Nance MD Procedure(s): XR chest 1V portable Accession Number(s): [id number] cc: Clint Daniels MD; Harsha Nance MD; Davey Trevizo MD~ EXAMINATION: AP chest single view TECHNIQUE: AP portable upright chest single view Date and time: February 11, 2025, 0938 hours, comparison September 09, 2024 INDICATIONS: Stroke alert today FINDINGS: No significant cardiac enlargement No aspiration pneumonia or pulmonary edema Adequate bone density IMPRESSION: Negative for aspiration pneumonia Dictated By: Harsha Nance MD Procedure(s): MR stroke protocol Accession Number(s): [id number] cc: Clint Daniels MD; Harsha Nance MD; Abelino Gordon MD~ Examinations: MRI Brain without intravenous contrast. MRA brain without intravenous contrast. MRA carotids without intravenous contrast 3-D vascular reconstructions Date and time of exam: February 11, 2025, 1304 hours INDICATIONS: Stroke alert today, acute onset confusion focal neurologic deficits Technique: Multiple axial and sagittal images of the brain have been obtained MRA brain carotid images without contrast obtained, including 3-D postprocessing, vascular maximum intensity projection images Findings: Sellaturcica is not enlarged. The optic chiasm and infundibular stalk are not remarkable. Prepontine and interpeduncular cisterns are not enlarged. No localized enlargement of the medulla or kaushik. Fourth ventricle and cerebellar tonsils normal in position. Subacute hemorrhage is not seen. Fourth ventricle is midline. Mass in the cerebellopontine angle region is not evident. 7th and 8th nerve complexes exhibits symmetry. Globes are symmetrical with no retro-orbital mass. Increased white matter signal evident, punctate focus increased signal left frontal parietal white matter FLAIR image 17 and right frontal white matter FLAIR image 15 Diffusion-weighted images demonstrate no focus of restricted diffusion Mass-effect upon the ventricular system is not identified. MRA carotid images no carotid significant stenoses. MRA brain images no large vessel occlusions Impression: Negative for acute hemorrhage, mass effect or midline shift Old infarcts as above No acute infarct. Scattered punctate foci increased signal in the white matter, demyelinating disease Dictated By: Harsha Nance MD Medications / Prescriptions Medications or Prescriptions considered but not ordered:: none Medication administrations:: Medication Administration History Acetaminophen (Acetaminophen 325 Mg Tablet) 650 mg PO Q6H PRN PRN Reason: Fever >100 Stop: 03/13/25 12:04 Acetaminophen (Acetaminophen 325 Mg Tablet) 650 mg PO Q6H PRN PRN Reason: PAIN SCALE 1-3 (mild Stop: 03/13/25 12:09 Hydrocodone Bitart/Acetaminophen (Hydrocodone/Apap 5/325 Tablet) 1 tab PO Q4HR PRN PRN Reason: PAIN SCALE 4-10(Mod-Sev Stop: 02/16/25 12:09 Atorvastatin Calcium (Atorvastatin Calcium 20 Mg Tablet) 40 mg PO HS DOMINIQUE Stop: 03/13/25 20:59 Clopidogrel Bisulfate (Clopidogrel Bisulfate 75 Mg Tablet) 75 mg PO QDAY DOMINIQUE Stop: 03/14/25 08:59 Heparin Sodium (Porcine) (Heparin Sod Inj 5000 Unit/Ml Vial) 5,000 unit SC BID [facility] Stop: 02/25/25 20:59 Ondansetron HCl (Ondansetron Inj 2 Mg/Ml Inj 2 Ml) 4 mg IVP Q6H PRN; Protocol PRN Reason: NAUSEA OR VOMITING Stop: 03/13/25 12:04 Discontinued Medications Lorazepam (Lorazepam 0.5 Mg Tablet) 0.5 mg PO X1 ONE Stop: 02/11/25 09:13 Last Admin: 02/11/25 09:40 Dose: 0.5 mg Documented By: EF see above Consultations Consultation(s) initiated? (list below): Yes Consultation #1 (Physician, Specialty, Details): See MDM narrative above. Diagnosis Neuro Differential Diagnosis: other (anxiety or panic episode, orthostatic symptoms, and less likely acute CVA) Most likely diagnosis given after review of the tests above:: CVA Admission Indicated Admission indicated?: indicated Admission Request Was there a request for admission?: Yes Admission Attestation Admission request attestation: Discussed case with [] from Hospitalist service regarding admission. Discussed patients ED course, exam findings, labs, and radiology results. The Hospitalist [agrees,declines] to accept the patient for admission. Disposition Plan Disposition Plan: Admit Critical Care Time Critical Care Time Critical Care Time: Yes Total Critical Care Time (min.): 45 Attestation: The high probability of sudden, clinically significant deterioration in the patient?s condition required the highest level of my preparedness to intervene urgently. The services I provided to this patient were to treat and/or prevent clinically significant deterioration. Services included the following: chart data review, reviewing nursing notes and/or old charts, documentation time, it security consultant collaboration regarding findings and treatment options, medication orders and management, direct patient care, vital sign assessments and ordering, interpreting and reviewing diagnostic studies and lab tests. Aggregate critical care time includes only time during which I was engaged in work directly related to the patient?s care, as described above, whether at bedside or elsewhere in the Emergency Department. It did not include time spent performing other reported procedures or the services of residents, students, nurses or physician assistants. Discharge Plan Plan Patient Disposition: Admit Acute Care w/in Hospital Problem List Clinical Impression: Cerebrovascular accident
[2025-02-11 09:29] LABS: Basophils # (Auto) 0.1 Thou/mm3 (0.0-0.2); Basophils % (Auto) 1 % (0-2.5); Eosinophils # (Auto) 0.2 Thou/mm3 (0.0-0.5); Eosinophils % (Auto) 2 % (0-10); Hematocrit 48.2 % (41.0-53.0); Hemoglobin 16.6 g/dL (13.5-16.0); Immature Granulocytes Auto 0.03 Thou/mm3 (0.00-0.00); Lymphocytes # (Auto) 1.9 Thou/mm3 (1.0-4.8); Lymphocytes % (Auto) 24 % (10-50); Mean Corpuscular HGB Conc 34.4 g/dl (31.0-37.0); Mean Corpuscular Hemoglobin 31.4 pg (25.0-35.0); Mean Corpuscular Volume 91 fL (80-100); Monocytes # (Auto) 0.8 Thou/mm3 (0.0-0.8); Monocytes % (Auto) 10 % (0-12); Neutrophils # (Auto) 5.0 Thou/mm3 (1.8-7.7); Neutrophils % (Auto) 64 % (37-80); Nucleated Red Blood Cell # 0.00 Thou/mm3 (0.00-0.00); Nucleated Red Blood Cell % 0 /100 WBC (0); Platelet Count 263 Thou/mm3 (140-440); RDW Standard Deviation 37.7 fL (35.1-43.9); Red Blood Count 5.29 Miln/mm3 (4.50-5.90); White Blood Count 7.8 Thou/mm3 (3.8-10.6)
[2025-02-11 09:32] VITALS: PULSE 70; RESP 16; RESP 98
[2025-02-11 09:40] LABS: INR 1.0 (0.9-1.3); Partial Thromboplastin Time 27.5 Seconds (22.0-36.0); Prothrombin Time 10.3 Seconds (9.0-12.2)
--- NOTE | 2025-02-11 09:43 | PD.TNEURO ---
Tele Neuro Consultation Consultation Date 02/11/25 Most Recent Vital Signs Last Vital Signs Temp 98.2 F 02/11/25 09:10 Pulse 70 02/11/25 09:32 Resp 16 02/11/25 09:32 BP 163/106 H 02/11/25 09:10 Pulse Ox 99 02/11/25 09:10 O2 Del Method Room Air 02/11/25 09:10 Laboratory-Coagulation Panel PT 10.3 Seconds (9.0-12.2) 02/11/25 09:17 INR 1.0 (0.9-1.3) 02/11/25 09:17 APTT 27.5 Seconds (22.0-36.0) 02/11/25 09:17 Consultation Narrative [facility] TeleNeurology Consult Services Patient Name:???LAURA BROWN Date of :???1980 Identification Number:??? Date of Service:???02/11/2025 09:10:25 Diagnosis:?R53.1 - Weakness Impression: ?44-year-old male presented with symptoms of a sensation of impending doom, paresthesias involving the teeth, and weakness in the knees. Differential: rule out stroke, recommend admission for stroke work up. MRI brain without contrast, statin for LDL goal less than 70. Our recommendations are outlined below. Recommendations: ? Stroke/Telemetry Floor ? Neuro Checks (Q4) ? Bedside Swallow Eval ? DVT Prophylaxis ? IV Fluids, Normal Saline ? Head of Bed 30 Degrees ? Euglycemia and Avoid Hyperthermia (PRN Acetaminophen) ? Initiate or continue Plavix 75 MG daily Sign Out: ? Discussed with Emergency Department Provider Advanced Imaging: Advanced imaging has been ordered. Results pending. Metrics: Last Known Well: 02/11/2025 08:30:00 Arrival Time: 02/11/2025 09:08:26 Activation Time: 02/11/2025 09:10:25 Initial Response Time: 02/11/2025 09:12:59Symptoms: Impending doom, weakness. . Initial patient interaction: 02/11/2025 09:14:00 NIHSS Assessment Completed: 02/11/2025 09:33:27Patient is not a candidate for Thrombolytic. Thrombolytic Medical Decision: 02/11/2025 09:33:28Patient was not deemed candidate for Thrombolytic because of following reasons: Stroke severity too mild (non-disabling) . CT Head: CT head unremarkable for acute infarction or hemorrhage per Radiology: No acute changes. Primary Provider Notified of Diagnostic Impression and Management Plan on: 02/11/2025 09:40:28 History of Present Illness:Patient is a 44 year old Male. Patient was brought by private transportation with symptoms of impending doom, weakness. 44-year-old male presented with symptoms of a sensation of impending doom, paresthesias involving the teeth, and weakness in the knees. The symptoms began at approximately 8:30 AM while he was playing video games. The patient reported that upon standing, he experienced weakness in his knees. Patient states that he had similar symptoms last July when he was diagnosed with a stroke. Past Medical History: ?Stroke ?There is no history of Hypertension ?There is no history of Diabetes Mellitus ?There is no history of Coronary Artery Disease Medications: No Anticoagulant use? Antiplatelet use:?Yes?plavix Reviewed EMR for current medications Allergies:? Reviewed Social History: Drug Use: No Family History: There is no family history of premature cerebrovascular disease pertinent to this consultation ROS : 14 Points Review of Systems was performed and was negative except mentioned in HPI. Past Surgical History: There Is No Surgical History Contributory To Today?s Visit Examination: BP(163/106),?Pulse(76),?Blood Glucose(107) 1A: Level of Consciousness - Alert; keenly responsive?+ 0 1B: Ask Month and Age - Both Questions Right?+ 0 1C: Blink Eyes & Squeeze Hands - Performs Both Tasks?+ 0 2: Test Horizontal Extraocular Movements - Normal?+ 0 3: Test Visual Philippe - No Visual Loss?+ 0 4: Test Facial Palsy (Use Grimace if Obtunded) - Normal symmetry?+ 0 5A: Test Left Arm Motor Drift - No Drift for 10 Seconds?+ 0 5B: Test Right Arm Motor Drift - No Drift for 10 Seconds?+ 0 6A: Test Left Leg Motor Drift - No Drift for 5 Seconds?+ 0 6B: Test Right Leg Motor Drift - No Drift for 5 Seconds?+ 0 7: Test Limb Ataxia (FNF/Heel-Guerrero) - No Ataxia?+ 0 8: Test Sensation - Normal; No sensory loss?+ 0 9: Test Language/Aphasia - Normal; No aphasia?+ 0 10: Test Dysarthria - Normal?+ 0 11: Test Extinction/Inattention - No abnormality?+ 0 NIHSS Score:?0 Pre-Morbid Modified Mary Carmen Scale: 0 Points = No symptoms at all Spoke with :?ED provider This consult was conducted in real time using interactive audio and video technology. Patient was informed of the technology being used for this visit and agreed to proceed. Patient located in hospital and provider located at home/office setting. Patient is being evaluated for possible acute neurologic impairment and high probability of imminent or life-threatening deterioration. I spent total of 25 minutes providing care to this patient, including time for face to face visit via telemedicine, review of medical records, imaging studies and discussion of findings with providers, the patient and/or family. Dr Micah Malhotra [facility] For Inpatient follow-up with [facility] physician please call [facility] at . As we are not an outpatient service for any post hospital discharge needs please contact the hospital for assistance. If you have any questions for the [facility] physicians or need to reconsult for clinical or diagnostic changes please contact us via [facility] at . Non-radiologist review of imaging performed to assist with emergent clinical decision-making. Remote physician workstations do not possess the same resolution, calibration, or diagnostic capabilities as hospital-based radiology reading stations, and formal radiologist read is necessary. Signature :Hari Malhotra
[2025-02-11 09:59] LABS: B-Type Natriuretic Peptide < 20 pg/mL (0-100)
[2025-02-11 10:01] LABS: Alanine Aminotransferase 39 U/L (10-49); Albumin, Serum 4.8 gm/dL (3.5-5.0); Albumin/Globulin Ratio 1.6 (1.2-2.2); Alcohol, Blood Medical < 3.0 mg/dL (0-10.0); Alkaline Phosphatase 95 U/L (46-116); Anion Gap 11 (7-16); Aspartate Amino Transferase 23 U/L (0-34); BUN/Creatinine Ratio 9 Ratio (12-20); Bilirubin,Total 0.6 mg/dL (0.3-1.2); Blood Urea Nitrogen 12 mg/dL (9-23); Calcium 9.3 mg/dL (8.3-10.6); Calcium (Corrected) 9.3 mg/dL (8.5-10.1); Carbon Dioxide 27.1 mMol/L (20.0-31.0); Chloride 106 mMol/L (98-107); Creatinine (Component) 1.4 mg/dL (0.6-1.3); Estimated Creatinine Clearance 81.9 mL/min (>60); Globulin 3.0 gm/dL (2.3-3.5); Glucose 129 mg/dL (74-106); Magnesium 2.1 mg/dL (1.6-2.6); Osmolality,Calculated 288 (275-295); Potassium 4.3 mMol/L (3.4-5.1); Sodium 144 mMol/L (136-145); Total Protein 7.8 gm/dL (5.7-8.2); Troponin I < 0.002 ng/mL (0.0-0.045); eGFR > 60 See Note
[2025-02-11 10:03] LABS: Free T4 (Free Thyroxine) 1.25 ng/dL (0.89-1.76); Thyroid Stimulating Hormone 1.43 uIU/mL (0.55-4.78)
[2025-02-11 10:58] LABS: Collection Type, Urine Clean Catch
[2025-02-11 11:09] VITALS: BP 124/72; PULSE 64; RESP 16; O2SAT 95
[2025-02-11 11:49] VITALS: BP 108/69; PULSE 65; RESP 17; TEMP 36.8; O2SAT 96
[2025-02-11 11:56] LABS: Bilirubin,Urine Negative (Negative); Blood,Urine Negative (Negative); Clarity,Urine Clear (Clear/Hazy); Color,Urine Yellow (Lt Yel-Yel); Culture Indicated,Urine Not Indicated; Glucose, Urine Negative (Negative); Ketones,Urine Negative (Negative); Leukocyte Esterase,Urine Negative (Negative); Nitrite,Urine Negative (Negative); PH,Urine 6.0 (5.0-7.0); Protein,Urine Negative (Neg - Trace); RBC,Urine 2 /hpf (0-3); Squamous Epithelial Cell,Urine 1 /hpf (0-5); Urobilinogen,Urine Negative mg/dL (0.0-1.0); WBC,Urine 1 /hpf (0-5)
[2025-02-11 12:01] LABS: Specific Gravity,Urine 1.020 (1.001-1.035)
[2025-02-11 12:08] LABS: Amphetamine/Methamp Scrn,U Negative (Negative); Barbiturate Screen,Urine Negative (Negative); Benzodiazepines Screen,Urine Negative (Negative); Benzoylecgonine Screen, Ur Negative (Negative); Fentanyl Screen,Urine Negative (Negative); Opiate Screen,Urine Negative (Negative); THC Screen,Urine Positive (Negative)
[2025-02-11 13:54] VITALS: BP 126/77; PULSE 62; RESP 18; TEMP 36.7; O2SAT 95
--- NOTE | 2025-02-11 13:59 | ESHP_ITS ---
<Statement entered by Abelino Gordon MD - 02/11/25 15:51> I saw and examined patient personally and supervised PGY 1 resident, Dr. Benson formulating a management plan. I agree with the documentation with the exceptions as listed below. Patient admitted for stroke workup. Of note a few months ago in July he was diagnosed with his first stroke at [facility] and discharged on Plavix. This morning he had similar symptoms to his first episode including a sensation of impending doom, paresthesia of his face and lower extremity weakness. Upon arrival patient was assessed by teleneuro and deemed not a candidate for thrombolysis. CT brain unremarkable for acute infarct or hemorrhage. MRI brain stroke protocol was ordered. Patient will be admitted to telemetry for neurochecks and treatment and management of stroke rule out. Plan of care discussed with Attending Dr. Geno Gordon MD PGY 2 Disclaimer: This note was dictated by speech recognition. Minor errors in shipfitters supervisor may be present due to voice recognition software. Documentation for date of: 02/11/25 HPI History of Present Illness History of present illness: Graham Preciado is a 44-year-old male with medical history of TIA in July who presented to the ED on 02/11/2025 with concerns that he has had a stroke. Earlier in the morning, while seated, patient describes having days all of a sudden, with lightheadedness and dizziness, and paresthesia as in his mouth with numbness in the gum and teeth, he also describes seeing tracers as he moved his extremities about. Patient tried to stand up but felt weak in his knees. He describes similar presentation of symptoms in July when he was admitted to [facility] with negative workup. Patient also feels frustrated at the repetition of the symptoms and describes it as impending sense of doom. His presenting symptoms have largely resolved at the time of this interview, but he still feels some numbness in his mouth. Currently he has no difficulties walking, speaking, or swallowing. Patient denies recent fevers, anxiety, chest pain, abdominal pain, diarrhea. ED course: T98.2, RR 17, HR 76, BP 163/106, O2 99% on RA. Labs were significant for CBC unremarkable, CMP CR 1.4, glucose 129. Patient received lorazepam 0.5mg. UA negative, UDS positive for THC. SARS COVID-negative and syphilis nonreactive CT brain w con and CTA carotids showed no significant neck arterial stenosis. No cerebral large vessel arterial occlusions or thrombi. CT brain wo con was negative for acute hemorrhage, mass effect, or midline shift. CXR was negative for aspiration pneumonia. MRI brain wo con was negative for acute infarct EKG showed sinus rhythm. Allergies: None Meds: Aspirin 81 mg, atorvastatin 40 mg, clopidogrel 75 mg, propranolol 40 mg twice daily. PMHx: TIA, July of 2024. PSHx: Vitrectomy of the right eye. PRP photocoagulation of bilateral eyes. Social Hx: Patient smoked 1 pack/day for 10 years before quitting 15 years ago. Smokes THC 2 times weekly for about 5 years. Drinks alcohol minimally. Denies any other drug use. Exam Vital Signs Temp Pulse Resp BP Pulse Ox O2 Del Method 98.1 F 62 18 126/77 95 Room Air 02/11/25 13:54 02/11/25 13:54 02/11/25 13:54 02/11/25 13:54 02/11/25 13:54 02/11/25 13:54 Narrative Exam General: Alert and oriented x3, No apparent distress. Skin: Intact, Warm, no rashes. HEENT: Normocephalic, Atraumatic. Normal neck range of motion, Supple. Trachea midline. Respiratory: Lungs are clear to auscultation. Breath sounds are equal bilaterally with good, symmetric chest expansion. Cardiovascular: RRR, normal S1, S2, No murmurs. Distal pulses 2+ Abdomen: Abdomen non-distended, without erythema, or lesions. Normotensive bowel sounds x4. Percussion tympanic. Palpation soft, nontender in all four quadrants. No organomagely. Absent rigidity, guarding, or rebound. Musculoskeletal/Extremities: No erythema, swelling, tenderness of any joints. No edema of BLE. DP pulses +2/3 b/l. Full active ROM of all four extremities. Neurologic: NEURO: Oriented x3, cranial nerves II to XII grossly intact. Cerebellar exam (tztkly-kw-thcl, vuzv-so-tpsn) intact. Muscle strength 5/5 on UE and LE b/l, Moves extremities x4. Sensation intact to gross touch along C6-T1 and L2-S1 dermatomes. No focal neurologic deficits noted Psych: Thoughts linear and responses appropriate. Results: Labs 02/11/25 09:17 02/11/25 09:17 Labs: Short CBC 02/11/25 Range/Units 09:17 WBC 7.8 (3.8-10.6) Thou/mm3 Hgb 16.6 H (13.5-16.0) g/dL Hct 48.2 (41.0-53.0) % Plt Count 263 (140-440) Thou/mm3 BMP 02/11/25 09:17 Sodium 144 Potassium 4.3 Chloride 106 Carbon Dioxide 27.1 BUN 12 Creatinine 1.4 H Glucose 129 H Calcium 9.3 Cardiac Enzymes 02/11/25 Range/Units 09:17 Troponin I < 0.002 (0.0-0.045) ng/mL Liver Function 02/11/25 Range/Units 09:17 Total Bilirubin 0.6 (0.3-1.2) mg/dL AST 23 (0-34) U/L ALT 39 (10-49) U/L Alkaline Phosphatase 95 (46-116) U/L Albumin 4.8 (3.5-5.0) gm/dL Urine 02/11/25 Range/Units 10:51 Urine Color Yellow (Lt Yel-Yel) Urine Clarity Clear (Clear/Hazy) Urine pH 6.0 (5.0-7.0) Ur Specific [place] 1.020 (1.001-1.035) Urine Protein Negative (Neg - Trace) Urine Glucose (UA) Negative (Negative) Quality Measures Quality Measures VTE prophylaxis Medications Home Medications and Allergies Home Medications ?Medication ?Instructions ?Recorded ?Confirmed ?Type aspirin 81 mg tablet,delayed 81 mg PO DAILY 11/04/24 0 11/04/24 History release atorvastatin 40 mg tablet (Lipitor) 40 mg PO DAILY Hig h cholesterol 11/04/24 11/04/24 History clopidogrel 75 mg tablet 75 mg PO DAILY Post-stroke 0 11/04/24 11/04/24 History propranolol 40 mg tablet 40 mg PO BID heart rate- 11/04/24 History tachycardia Allergies Allergy/AdvReac Type Severity Reaction Status Date / Time No Known Allergies Allergy Verified 09/13/24 14:12 Visit Medications Acetaminophen (Acetaminophen 325 Mg Tablet) 650 mg PO Q6H PRN PRN Reason: Fever >100 Stop: 03/13/25 12:04 Acetaminophen (Acetaminophen 325 Mg Tablet) 650 mg PO Q6H PRN PRN Reason: PAIN SCALE 1-3 (mild Stop: 03/13/25 12:09 Hydrocodone Bitart/Acetaminophen (Hydrocodone/Apap 5/325 Tablet) 1 tab PO Q4HR PRN PRN Reason: PAIN SCALE 4-10(Mod-Sev Stop: 02/16/25 12:09 Heparin Sodium (Porcine) (Heparin Sod Inj 5000 Unit/Ml Vial) 5,000 unit SC BID DOMINIQUE Stop: 02/25/25 20:59 Ondansetron HCl (Ondansetron Inj 2 Mg/Ml Inj 2 Ml) 4 mg IVP Q6H PRN; Protocol PRN Reason: NAUSEA OR VOMITING Stop: 03/13/25 12:04 Discontinued Medications Lorazepam (Lorazepam 0.5 Mg Tablet) 0.5 mg PO X1 ONE Stop: 02/11/25 09:13 Last Admin: 02/11/25 09:40 Dose: 0.5 mg Assessment & Plan Plan Graham Preciado is a 44-year-old male with medical history of TIA in July who presented to the ED on 02/11/2025 for evaluation of acute oral paresthesia, visual disturbance, lightheadedness, dizziness, and weakness in bilateral knees. Patient was admitted for the workup of acute stroke. #Stroke rule out #hx of TIA Patient presented with an episode earlier in the day with numbness in his teeth and gums, visual disturbance with visualization of tracers, lightheadedness/dizziness, and weakness in bilateral knees which improved by the time of ED presentation. Ddx anxiety/panic attack. Patient reports similar constellation of symptoms in July 2024 where complete workup was negative. Patient was discharged on aspirin, Plavix, and atorvastatin. Patient has taken all of his meds for the day in the morning. EKG showed sinus rhythm. CT brain w con and CTA carotids showed no significant neck arterial stenosis. No cerebral large vessel arterial occlusions or thrombi. CT brain wo con was negative for acute hemorrhage, mass effect, or midline shift. CXR was negative for aspiration pneumonia. MRI brain wo con was negative for acute infarct SARS COVID-negative and syphilis nonreactive Plan: ? Initiate or continue Plavix 75 MG daily ? Aspirin 81mg daily ? Atorvastatin 20mg daily ??? Stroke/Telemetry Floor ? Neuro Checks (Q4) ? Bedside Swallow Eval /Aspiration precautions ? DVT Prophylaxis ? IV Fluids, Normal Saline ? Head of Bed 30 Degrees ? Euglycemia and Avoid Hyperthermia (PRN Acetaminophen) ?Routine MRI Brain without contrast to assess for stroke ?TTE (if not recently done) ?Lipid Profile, A1C ?PT/OT, Speech/Swallow evaluation -PRN Zofran 4 mg Q6H for nausea/vomiting #HTN BP at presentation 163/106, patient already took his morning dose of propranolol ? Antihypertensives PRN if Blood pressure is greater than 220/120 or there is a concern for End organ damage/contraindications for permissive HTN. If blood pressure is greater than 220/120 give labetalol PO or IV or Vasotec IV with a goal of 15% reduction in BP during the first 24 hours. ? pending med rec #THC use UA negative, UDS positive for THC - Patient has been smoking marijuana 1-2x weekly for 5 years. - cessation counseling Health Maintenance: Disposition: Telemetry Diet: Regular PPx DVT: Heparin 5000u SC BID Code Status: FULL This case was discussed with my attending physician, Dr. Lora, and senior resident, Dr Gordon. Even though this this note was carefully revised there may still be minor errors in shipfitters supervisor due to voice recognition software. Carline Benson, DO PGY I Attending Provider Attestation/Addendum I have seen and examined the patient. I was physically present for the cohen portions of the services provided including history, physical exam, diagnosis, treatment plans and orders. I agree with assessment and plan of care as documented by residents. After examination of the patient and review of the clinical data I feel that this patient needs admission to the hospital for further treatment/evaluation. Even though this this note was carefully revised there may still be minor errors in shipfitters supervisor due to voice recognition software. Estevan Lora MD
[2025-02-11 15:08] VITALS: BP 115/74; PULSE 60; RESP 17; TEMP 36.7; O2SAT 95
--- NOTE | 2025-02-11 18:20 | PC.NURSE ---
patient wanting to leave MARY VERDIN at bedside
--- NOTE | 2025-02-11 18:27 | PC.NURSE ---
patient deciding to leave AMA at this time informed patient of potential worsening symptoms that can lead to paralysis and even in worse case scenario. patient verbalized understanding. patient wanting to leave states he feels better and wants to leave due to paying stay out of pocket no insurance at the time. patient states he has a neurologist and will follow up and would return for any worsening symptoms
--- NOTE | 2025-02-11 18:46 | PC.NURSE ---
dr arredondo at bedside speaking with patient
--- NOTE | 2025-02-11 20:09 | PD.RESEVENT ---
Documentation for date of: 02/11/25 Event Note Event Note: Received a call at 1830 about patient wanting to leave AMA after MRI Brain was negative for acute infarct. I explained to the patient that given his history of TIA in recent past, he is advised to stay until formal neurology consultation. I explained to the patient that his presentation with a similar constellation of symptoms to his previous TIA was concerning for medication inappropriateness, and a formal evaluation by neurology as to medication dose adjustment or change was indicated. I explained to the patient that without formal advice on to outpatient treatment and follow-up patient was prone to developing similar or worsening symptoms, at which point he was encouraged to return to ER. I explained to the patient that without proper treatment, there was high chance of deterioration, weakness, paralysis, and in the worst case scenario even . Patient understands all risk involved, GCS 15, and ANO x 4. present at bedside. This case was discussed with my attending physician, Dr. Lora, and senior resident, Dr Gordon. Even though this this note was carefully revised there may still be minor errors in wood block artist due to voice recognition software. Carline Benson, DO PGY I
--- NOTE | 2025-02-11 20:22 | ESDS_ITS ---
<Statement entered by Abelino Gordon MD - 02/13/25 09:51> I saw and examined patient personally and supervised PGY 1 resident, Dr. Benson. I agree with the documentation as listed below. Plan of care discussed with Attending Dr. Geno Gordon MD PGY 2 Disclaimer: This note was dictated by speech recognition. Minor errors in manager army may be present due to voice recognition software. Planned Discharge Date 02/11/25 DS: Providers Provider Date of admission: 02/11/25 11:22 Primary care physician: Clint Daniels MD Admitting Provider: Estevan Lora MD Attending Provider on Admission: Estevan Lora MD Consults: 02/11/25 09:12 Consult to Neurology / Tele-Neurology Routine Comment: Consulting Provider: [facility] 02/11/25 13:30 Referral Physical Therapy Routine Comment: Physician Instructions: Referral Speech Therapy Routine Comment: Attending Provider on DC: Estevan Lora MD Discharging Provider: Carline Benson DO DS: Diagnosis Problem List Completed Was Problem List Reviewed/Reconciled?: Yes Hospital Course Hospital Course Hospital course: Graham Preciado is a 44-year-old male with medical history of TIA in July 2024 who presented in the morning of 02/11/2025 for evaluation of brief episode of lightheadedness and dizziness, and paresthesias in his mouth with numbness in the gums and teeth, he also described seeing tracers as he moved his extremities about. Patient was admitted for workup of stroke. At the time of admission, patient's symptoms had already resolved with minor residual of oral paresthesias. No weakness, speech, or swallowing difficulties. T98.2, RR 17, HR 76, BP 163/106, O2 99% on RA. Labs were significant for CBC unremarkable, CMP CR 1.4, glucose 129. Patient received lorazepam 0.5mg. UA negative, UDS positive for THC. CT brain w con and CTA carotids showed no significant neck arterial stenosis. No cerebral large vessel arterial occlusions or thrombi. CT brain wo con was negative for acute hemorrhage, mass effect, or midline shift. CXR was negative for aspiration pneumonia. MRI brain wo con was negative for acute infarct EKG showed sinus rhythm. Teleneurology was consulted who recommended the above mentioned studies as well as continuing with Plavix. As patient had taken his morning dose, medication would be resumed from the following day and include aspirin and atorvastatin. Patient was kept in permissive hypertension window. Received a call at 1830 about patient wanting to leave AMA after MRI Brain was n egative for acute infarct. I explained to the patient that given his history of TIA in recent past, he is advised to stay until formal neurology consultation. I explained to the patient that his presentation with a similar constellation of symptoms to his previous TIA was concerning for medication inappropriateness, and a formal evaluation by neurology as to medication dose adjustment or change was indicated. I explained to the patient that without formal advice on to outpatient treatment and follow-up patient was prone to developing similar or worsening symptoms, at which point he was encouraged to return to ER. I explained to the patient that without proper treatment, there was high risk of recurrence, worsening of symptoms, weakness, paralysis, and in the worst case scenario even . Patient understands all risk involved, GCS 15, and ANO x 4. present at bedside. Admission diagnosis: # CVA rule out #History of TIA #History of hypertension #THC use Discharge instructions: Follow-up with neurologist appointment as soon as possible for medication adjustment/further pending workup for stroke/TIA Continue taking your home medications including aspirin 81 mg daily, Plavix 75 mg daily, and atorvastatin until you see a neurologist Return to Emergency Room if symptoms persist, worsen, or new symptoms develop. Follow-up with PCP to make an appointment with a neurologist You may follow-up with one of our residents doctor with the [facility] at the address below. [facility] [address] [place] [address] This case was discussed with my attending physician, Dr. Lora, and senior resident, Dr Gordon. Even though this this note was carefully revised there may still be minor errors in manager army due to voice recognition software. Carline Benson DO PGY I Status at Discharge Functional status at discharge: independent ambulation Overall status at discharge: patient is progressing back to baseline Time Spent with Patient Time attestation: Total time spent providing and/or coordinating discharge services: 35 minutes Time spent: Greater than 30 minutes Exam Vital Signs Temp Pulse Resp BP Pulse Ox O2 Del Method 98.0 F 60 17 115/74 95 Room Air 02/11/25 15:08 02/11/25 15:08 02/11/25 15:08 02/11/25 15:08 02/11/25 15:08 02/11/25 15:08 Narrative Exam General: Alert and oriented x3, No apparent distress. Skin: Intact, Warm, no rashes. HEENT: Normocephalic, Atraumatic. Normal neck range of motion, Supple. Trachea midline. Respiratory: Lungs are clear to auscultation. Breath sounds are equal bilaterally with good, symmetric chest expansion. Cardiovascular: RRR, normal S1, S2, No murmurs. Distal pulses 2+ Abdomen: Abdomen non-distended, without erythema, or lesions. Normotensive bowel sounds x4. Percussion tympanic. Palpation soft, nontender in all four quadrants. No organomagely. Absent rigidity, guarding, or rebound. Musculoskeletal/Extremities: No erythema, swelling, tenderness of any joints. No edema of BLE. DP pulses +2/3 b/l. Full active ROM of all four extremities. Neurologic: NEURO: Oriented x3, cranial nerves II to XII grossly intact. Cerebellar exam ([id number]-[id number]-rtga, [id number]) intact. Muscle strength 5/5 on UE and LE b/l, Moves extremities x4. Sensation intact to gross touch along C6-T1 and L2-S1 dermatomes. No focal neurologic deficits noted Psych: Thoughts linear and responses appropriate. Discharge Plan Prescriptions/Referrals Prescriptions/Med Rec: No Action clopidogrel 75 mg tablet 75 mg PO DAILY aspirin 81 mg tablet,delayed release (DR/EC) 81 mg PO DAILY Patient Comments: TAKE 1 TABLET BY MOUTH ONCE DAILY AFTER DINNER TO PREVENT STROKE atorvastatin [Lipitor] 40 mg tablet 40 mg PO DAILY propranolol 40 mg tablet 40 mg PO BID Referrals: Clint Daniels MD [Primary Care Provider, Family Practice] Patient/Caregiver Discharge Instructions Print Language: Lao Quality Discharge Quality Measures VTE prophylaxis MD Attestestation MD Attestation I have seen and examined the patient. I was physically present for the cohen portions of the services provided including history, physical exam, diagnosis, treatment plans and orders. I agree with assessment and plan of care as documented by residents. Even though this this note was carefully revised there may still be minor errors in manager army due to voice recognition software. Subash Bishwakarma, MD
== END 2025-02-11 18:54 | disposition left against medical advice (07) | DRG 948 ==
LOC: SERX 10:44 → SERHOLD 13:00
PROVIDERS: Admitting Provider Student in an Organized Health Care Education/Training Program; Emergency Provider Emergency Medicine; PCP Family Medicine; Visit Provider Student in an Organized Health Care Education/Training Program
DX: R53.1 Weakness (principal); H53.9 Unspecified visual disturbance; F12.90 Cannabis use, unspecified, uncomplicated; Z86.73 Personal history of transient ischemic attack (TIA), and cerebral infarction without residual deficits; Z79.82 Long term (current) use of aspirin; I10 Essential (primary) hypertension; Z87.891 Personal history of nicotine dependence; Z79.899 Other long term (current) drug therapy; Z79.02 Long term (current) use of antithrombotics/antiplatelets
CPT/HCPCS: 36415; 70450; 70496; 70498; 70544; 71045; 80053; 80061; 80307; 80320; 81001; 83036; 83735; 83880; 84100; 84439; 84443; 84484; 85025; 85610; 85730; 93005; 99285; A4649; Q9967; A9270; G0480